=== PATIENT | female | born 1935 | race Caucasian/White ===

== ENCOUNTER 2019-12-05 14:43 | Inpatient (IN) | payer OTHER, SELFPAY ==
[~2019-12-05] VITALS: Ht 154.9 cm; Wt 72.6 kg
[2019-12-05 14:49] VITALS: Ht 154.9 cm; Wt 72.6 kg
[2019-12-05 15:50] LABS: BASOPHIL % 0 % (0-2); PLATELET COUNT 372 x10^3mcL (130-400); RED CELL DISTRIBUTION WIDTH 14.2 % (11.5-14.5)
[2019-12-05 16:04] LABS: ALKALINE PHOSPHATASE 62 U/L (46-116); ALT/SGPT 28 U/L (14-59); AST/SGOT 25 U/L (15-37); BILIRUBIN TOTAL 0.46 mg/dL (0.20-1.00); CALCIUM 8.5 mg/dL (8.5-10.1); CARBON DIOXIDE 23.5 mmol/L (21-32); CHLORIDE SERUM 97 mmol/L (98-107); CREATININE SERUM 1.1 mg/dL (0.6-1.0); GLUCOSE SERUM 236 mg/dL (74-106); LACTIC DEHYDROGENASE (LDH) 330 U/L (100-190); SODIUM SERUM 134 mmol/L (136-145); TOTAL PROTEIN, SERUM 7.1 g/dL (6.4-8.2)
[2019-12-05 16:06] LABS: ALBUMIN 2.8 g/dL (3.4-5.0)
[2019-12-05 16:08] LABS: POTASSIUM SERUM 2.9 mmol/L (3.5-5.1)
[2019-12-05] MEDS ORDERED: ZES10 PO (18:11)
[2019-12-05] MEDS ORDERED: SIMVASTATIN80 M1 PO (18:11)
[2019-12-05] MEDS ORDERED: ARICEPT10 MG PO (18:12)
[2019-12-05 19:12] LABS: microscopic required? YES; urine erythrocyte 1+ (NEGATIVE)
[2019-12-05 21:30] LABS: CALCIUM 8.6 mg/dL (8.5-10.1); CHLORIDE SERUM 99 mmol/L (98-107); CREATININE SERUM 0.8 mg/dL (0.6-1.0); GLUCOSE SERUM 264 mg/dL (74-106); POTASSIUM SERUM 4.5 mmol/L (3.5-5.1); SODIUM SERUM 135 mmol/L (136-145)
[2019-12-05 22:09] VITALS: BP 127/66
[2019-12-06 06:28] VITALS: BP 132/85
[2019-12-06 07:15] LABS: CALCIUM 8.9 mg/dL (8.5-10.1); CARBON DIOXIDE 25.6 mmol/L (21-32); CHLORIDE SERUM 101 mmol/L (98-107); CREATININE SERUM 0.8 mg/dL (0.6-1.0); GLUCOSE SERUM 275 mg/dL (74-106); MAGNESIUM 2.2 mg/dL (1.8-2.4); PHOSPHOROUS 2.9 mg/dL (2.5-4.9); POTASSIUM SERUM 4.5 mmol/L (3.5-5.1); SODIUM SERUM 138 mmol/L (136-145)
[2019-12-06 07:17] LABS: RED CELL DISTRIBUTION WIDTH 14.1 % (11.5-14.5)
[2019-12-06 07:18] LABS: BASOPHIL % 0 % (0-2); PLATELET COUNT 418 x10^3mcL (130-400)
[2019-12-06 08:36] VITALS: BP 136/76
[2019-12-06 12:28] VITALS: BP 114/63
[2019-12-06 17:19] VITALS: BP 132/73
[2019-12-06 21:01] VITALS: BP 126/72
[2019-12-07 05:39] VITALS: BP 156/83
[2019-12-07 06:59] LABS: CALCIUM 9.2 mg/dL (8.5-10.1); CHLORIDE SERUM 103 mmol/L (98-107); CREATININE SERUM 0.9 mg/dL (0.6-1.0); GLUCOSE SERUM 311 mg/dL (74-106); MAGNESIUM 2.2 mg/dL (1.8-2.4); PHOSPHOROUS 3.1 mg/dL (2.5-4.9); POTASSIUM SERUM 4.8 mmol/L (3.5-5.1); SODIUM SERUM 140 mmol/L (136-145)
[2019-12-07 07:23] LABS: PLATELET COUNT 476 x10^3mcL (130-400)
[2019-12-07 10:02] VITALS: BP 148/73
[2019-12-07 12:43] VITALS: BP 147/84
[2019-12-07 13:04] LABS: BASOPHIL % 0 % (0-2)
[2019-12-07 18:34] VITALS: BP 165/76
[2019-12-07 20:42] VITALS: BP 155/80
[2019-12-08 05:17] VITALS: BP 159/57
[2019-12-08 09:18] LABS: BILIRUBIN DIRECT 0.13 mg/dL (0.0-0.2); BILIRUBIN TOTAL 0.39 mg/dL (0.20-1.00); TOTAL PROTEIN, SERUM 7.4 g/dL (6.4-8.2)
[2019-12-08 09:31] LABS: BASOPHIL % 0.5 % (0-2); RED CELL DISTRIBUTION WIDTH 13.8 % (11.5-14.5)
[2019-12-08 09:39] VITALS: BP 141/72
[2019-12-08 11:28] LABS: PLATELET COUNT 520 x10^3mcL (130-400)
[2019-12-08 12:20] LABS: CALCIUM 9.4 mg/dL (8.5-10.1); CARBON DIOXIDE 25.1 mmol/L (21-32); CHLORIDE SERUM 104 mmol/L (98-107); CREATININE SERUM 0.8 mg/dL (0.6-1.0); GLUCOSE SERUM 92 mg/dL (74-106); PHOSPHOROUS 2.6 mg/dL (2.5-4.9); POTASSIUM SERUM 3.4 mmol/L (3.5-5.1); SODIUM SERUM 145 mmol/L (136-145)
[2019-12-08 13:52] VITALS: BP 134/75
[2019-12-08 18:36] VITALS: BP 146/78
[2019-12-08 21:14] VITALS: BP 156/75
[2019-12-09 06:29] VITALS: BP 139/76
[2019-12-09 09:00] VITALS: BP 132/77
[2019-12-09 09:01] LABS: CALCIUM 8.7 mg/dL (8.5-10.1); CARBON DIOXIDE 28.3 mmol/L (21-32); CHLORIDE SERUM 104 mmol/L (98-107); CREATININE SERUM 0.8 mg/dL (0.6-1.0); GLUCOSE SERUM 116 mg/dL (74-106); PHOSPHOROUS 3.1 mg/dL (2.5-4.9); POTASSIUM SERUM 3.6 mmol/L (3.5-5.1); SODIUM SERUM 141 mmol/L (136-145)
[2019-12-09 10:48] LABS: BASOPHIL % 0.1 % (0-2)
[2019-12-09 10:49] LABS: PLATELET COUNT 499 x10^3mcL (130-400)
[2019-12-09 11:08] LABS: BILIRUBIN DIRECT 0.15 mg/dL (0.0-0.2); BILIRUBIN TOTAL 0.47 mg/dL (0.20-1.00); TOTAL PROTEIN, SERUM 6.9 g/dL (6.4-8.2)
[2019-12-09 11:12] LABS: ALBUMIN 2.9 g/dL (3.4-5.0)
[2019-12-09 13:10] VITALS: BP 111/48
[2019-12-09 17:01] VITALS: BP 133/77
[2019-12-09 21:36] VITALS: BP 136/82
[2019-12-10 06:03] VITALS: BP 137/67
[2019-12-10 08:06] LABS: CALCIUM 8.8 mg/dL (8.5-10.1); CARBON DIOXIDE 27.3 mmol/L (21-32); CHLORIDE SERUM 104 mmol/L (98-107); CREATININE SERUM 0.7 mg/dL (0.6-1.0); GLUCOSE SERUM 109 mg/dL (74-106); MAGNESIUM 2.1 mg/dL (1.8-2.4); PHOSPHOROUS 3.3 mg/dL (2.5-4.9); POTASSIUM SERUM 3.7 mmol/L (3.5-5.1); SODIUM SERUM 142 mmol/L (136-145)
[2019-12-10 08:36] LABS: RED CELL DISTRIBUTION WIDTH 13.9 % (11.5-14.5)
[2019-12-10 09:09] VITALS: BP 133/66
[2019-12-10 09:09] LABS: BASOPHIL % 0 % (0-2); PLATELET COUNT 490 x10^3mcL (130-400)
[2019-12-10 10:52] LABS: BILIRUBIN DIRECT 0.17 mg/dL (0.0-0.2); BILIRUBIN TOTAL 0.5 mg/dL (0.20-1.00); TOTAL PROTEIN, SERUM 6.7 g/dL (6.4-8.2)
[2019-12-10 10:56] LABS: ALBUMIN 2.8 g/dL (3.4-5.0)
[2019-12-10 13:26] VITALS: BP 113/50
[2019-12-10 18:32] VITALS: BP 123/77
[2019-12-10 21:09] VITALS: BP 109/61
[2019-12-11 05:57] VITALS: BP 151/73
[2019-12-11 07:07] LABS: RED CELL DISTRIBUTION WIDTH 13.8 % (11.5-14.5)
[2019-12-11 07:12] LABS: BASOPHIL % 0 % (0-2); PLATELET COUNT 510 x10^3mcL (130-400)
[2019-12-11 07:44] LABS: ALKALINE PHOSPHATASE 77 U/L (46-116); ALT/SGPT 56 U/L (14-59); AST/SGOT 27 U/L (15-37); BILIRUBIN DIRECT 0.16 mg/dL (0.0-0.2); BILIRUBIN TOTAL 0.5 mg/dL (0.20-1.00); CALCIUM 8.6 mg/dL (8.5-10.1); CHLORIDE SERUM 104 mmol/L (98-107); CREATININE SERUM 0.7 mg/dL (0.6-1.0); GLUCOSE SERUM 116 mg/dL (74-106); PHOSPHOROUS 3.1 mg/dL (2.5-4.9); POTASSIUM SERUM 3.7 mmol/L (3.5-5.1); SODIUM SERUM 140 mmol/L (136-145); TOTAL PROTEIN, SERUM 6.4 g/dL (6.4-8.2)
[2019-12-11 07:45] LABS: ALBUMIN 2.7 g/dL (3.4-5.0)
[2019-12-11 10:00] VITALS: BP 132/56
[2019-12-11 13:14] VITALS: BP 139/74
[2019-12-11 17:07] VITALS: BP 123/70
[2019-12-12 05:55] VITALS: BP 119/67
[2019-12-12 08:05] LABS: BASOPHIL % 0.1 % (0-2); RED CELL DISTRIBUTION WIDTH 14.2 % (11.5-14.5)
[2019-12-12 08:06] LABS: PLATELET COUNT 524 x10^3mcL (130-400)
[2019-12-12 08:22] LABS: C REACTIVE PROTEIN 2.6 mg/dL (<=0.9); CALCIUM 9.2 mg/dL (8.5-10.1); CARBON DIOXIDE 27.4 mmol/L (21-32); CHLORIDE SERUM 103 mmol/L (98-107); CREATININE SERUM 0.7 mg/dL (0.6-1.0); GLUCOSE SERUM 104 mg/dL (74-106); MAGNESIUM 2.3 mg/dL (1.8-2.4); PHOSPHOROUS 3.3 mg/dL (2.5-4.9); POTASSIUM SERUM 3.8 mmol/L (3.5-5.1); SODIUM SERUM 139 mmol/L (136-145)
[2019-12-12 10:07] VITALS: BP 104/50
[2019-12-12 14:13] VITALS: BP 120/65
[2019-12-12] MEDS ORDERED: LEVAQUIN750 MG PO (15:29)
[2019-12-12] MEDS ORDERED: DECADRON6 MG PO (15:31)
[2019-12-12] MEDS ORDERED: ELIQUIS2.5 MG PO (15:33)
[2019-12-12] MEDS ORDERED: FORTAMET500 M1 PO (15:56)
[2019-12-12] MEDS ORDERED: XARELTO20 M1 PO (16:48)
[2019-12-12 16:56] VITALS: BP 120/65
[2019-12-12 17:26] VITALS: BP 100/60
== END 2019-12-12 17:56 | disposition home or self-care (01) | DRG 720 ==
LOC: ED 14:43 → DU 17:30
PROVIDERS: Emergency Medicine; Family Medicine; Internal Medicine Infectious Disease; ADMIT Internal Medicine; ATTEND Internal Medicine
DX: A41.89 Other specified sepsis (principal); U07.1 COVID-19; J96.01 Acute respiratory failure with hypoxia; E43 Unspecified severe protein-calorie malnutrition; N17.0 Acute kidney failure with tubular necrosis; E87.6 Hypokalemia; E87.1 Hypo-osmolality and hyponatremia; I10 Essential (primary) hypertension; E88.09 Other disorders of plasma-protein metabolism, not elsewhere classified; N39.0 Urinary tract infection, site not specified; E11.65 Type 2 diabetes mellitus with hyperglycemia; F03.90 Unspecified dementia, unspecified severity, without behavioral disturbance, psychotic disturbance, mood disturbance, and anxiety; J12.89 Other viral pneumonia; Z88.0 Allergy status to penicillin; Z79.899 Other long term (current) drug therapy; Z68.30 Body mass index [BMI] 30.0-30.9, adult; Z88.1 Allergy status to other antibiotic agents; Z79.01 Long term (current) use of anticoagulants
CPT/HCPCS: 36600; 82962; 83880; 85378; 87804; G0378; J0696; J1100; J1644; J1650; J1956; J3370; J3480; J7030; J7050; Q0092; U0003-CS